=== PATIENT | male | born 1995 | race Asian ===

== ENCOUNTER 2019-01-24 05:46 | Emergency (ER) | payer OTHER ==
[~2019-01-24] VITALS: Ht 172.7 cm; Wt 85.3 kg
[2019-01-24 06:20] VITALS: TEMP 98
[2019-01-24 08:30] VITALS: BP 126/72
== END 2019-01-24 08:30 | disposition home or self-care (01) ==
LOC: ED 05:46
PROC: 0HQGXZZ Repair Left Hand Skin, External Approach (ICD-10-PCS; principal; 2019-01-24)
PROC: 2W3KX1Z Immobilization of Left Finger using Splint (ICD-10-PCS; 2019-01-24)
DX: S61.213A Laceration without foreign body of left middle finger without damage to nail, initial encounter (principal); S62.663A Nondisplaced fracture of distal phalanx of left middle finger, initial encounter for closed fracture; W23.0XXA Caught, crushed, jammed, or pinched between moving objects, initial encounter; Y92.69 Other specified industrial and construction area as the place of occurrence of the external cause
CPT/HCPCS: 99283